=== PATIENT | male | born 1990 | race Caucasian/White ===

== ENCOUNTER 2018-08-11 20:27 | Emergency (ER) | payer OTHER ==
[~2018-08-11] VITALS: Ht 175.3 cm; Wt 63.5 kg
[2018-08-11 20:37] VITALS: BP 159/85
[2018-08-11] MEDS: NAPROXEN 500 MG TABLET PO ONE (22:04)
[2018-08-11] MEDS: HYDROcodone/APAP 5/325MG 1 TAB TABLET PO ONE (22:04)
[2018-08-11] MEDS ORDERED: DICL50TA4 PO (23:05)
--- NOTE | 2018-08-11 23:05 | PHYS DOC ---
Past Medical History Past Medical History: No Pertinent History Past Surgical History: No Surgical History Alcohol Use: Rarely Drug Use: None Adult General Chief Complaint Chief Complaint: FOOT INJURY PAIN HPI HPI Patient is a 28 year old medical presents with moderate pain on the right lateral foot that began today after he twisted his foot walking down some steps. Patient states the pain radiates up and down the foot as well as the ankle. Patient states he has not taken anything for his pain. Review of Systems Review of Systems Constitutional: Denies fever or chills [] Musculoskeletal: Reports right lateral foot pain Integument: Denies rash or skin lesions [] Neurologic: Denies headache, focal weakness or sensory changes [] All other systems were reviewed and found to be within normal limits, except as documented in this note. Current Medications Current Medications Current Medications Medications (Trade) Dose Ordered Sig/Major Start Time Stop Time Status Last Admin Dose Admin Acetaminophen/ Hydrocodone Bitart (Lortab 5/325) 2 tab 1X ONCE 08/11/18 22:00 08/11/18 22:01 DC 08/11/18 22:04 2 TAB Naproxen (Naprosyn) 500 mg 1X ONCE 08/11/18 22:00 08/11/18 22:01 DC 08/11/18 22:04 500 MG Allergies Allergies Allergies Coded Allergies Type Severity Reaction Last Updated Verified No Known Drug Allergies 08/11/18 No Physical Exam Physical Exam Constitutional: Well developed, well nourished, no acute distress, non-toxic appearance. [] Skin: Warm, dry, no erythema, no rash. [] Back: No tenderness, no CVA tenderness. [] Extremities: Right foot with no obvious deformity. Right ankle with no obvious deformity. Tenderness on palpation of the right lateral foot. Full range of motion to the right foot and ankle. +2 right pedal pulse. Cap refill less than 2 seconds the right toes. Sensation intact to the right lower extremity. Neurologic: Alert and oriented X 3, normal motor function, normal sensory function, no focal deficits noted. [] Psychologic: Affect normal, judgement normal, mood normal. [] Current Patient Data Vital Signs Vital Signs Date Time Temp Pulse Resp B/P (MAP) Pulse Ox O2 Delivery O2 Flow Rate FiO2 08/11/18 20:37 97.7 102 16 159/85 (109) 99 Room Air 97.7 EKG EKG [] Radiology/Procedures Radiology/Procedures [] Course & Med Decision Making Course & Med Decision Making Pertinent Labs and Imaging studies reviewed. (See chart for details) This is a 28-year-old male patient presenting to the ED today with right foot pain after twisting his foot. Right foot x-rays interpreted by Dr. Morales negative for any acute findings. Varun bandage applied to the right foot and ankle by the ED RN. Neurovascular exam is normal. Ice elevation encouraged. Follow-up with orthopedic doctor in one week. Dragon Disclaimer Dragon Disclaimer This electronic medical record was generated, in whole or in part, using a voice recognition dictation system. Departure Departure Impression: Primary Impression: Right ankle sprain Disposition: HOME, SELF-CARE Condition: STABLE Referrals: NO PCP (PCP) DEUCE NUNEZ MD Follow-up in 1-2 weeks Patient Instructions: Foot Sprain-Brief Additional Instructions: You were evaluated in the emergency room for right foot sprain. Ice elevate the extremity. Follow-up with orthopedic doctor provided or your own doctor in 1-2 weeks as needed. Scripts Diclofenac Sodium (DICLOFENAC SODIUM) 50 Mg Tablet.dr 1 TAB PO BID, #30 TAB 0 Refills Prov: OLE RAJAN BREAST PULLER 08/11/18 Problem Qualifiers Primary Impression: Right ankle sprain Encounter type: initial encounter Involved ligament of ankle: unspecified ligament Qualified Codes: S93.401A - Sprain of unspecified ligament of right ankle, initial encounter OLE RAJAN BREAST PULLER Aug 11, 2018 23:05
--- NOTE | 2018-08-12 09:01 | RAD ---
FOOT RIGHT 3V, ANKLE RIGHT 3V Clinical Indication: RIGHT FOOT AND ANKLE PAIN Comparison: None. Findings: No acute fracture of the ankle. Ankle mortise is intact. No soft tissue swelling. The mineralization is normal. No acute fracture the foot. Bony articulations are maintained. There is no soft tissue swelling. No bony erosion. IMPRESSION: No acute fracture. Electronically signed by: Sukhi Sims MD (08/12/2018 8:57 AM) [id number]
== END 2018-08-11 23:18 | disposition home or self-care (01) ==
LOC: ER 20:27
DX: S93.401A Sprain of unspecified ligament of right ankle, initial encounter (principal); X50.1XXA Overexertion from prolonged static or awkward postures, initial encounter; Y93.01 Activity, walking, marching and hiking; Y92.89 Other specified places as the place of occurrence of the external cause; Y99.8 Other external cause status
CPT/HCPCS: 73610; 73630; 99283